=== PATIENT | female | born 1995 | race Two or more races ===

== ENCOUNTER 2025-05-27 13:27 | Outpatient (AMB) | payer OTHER, MEDICAID, SELFPAY ==
[2025-05-27 13:48] VITALS: BP 124/80; PULSE 87; RESP 16; TEMP 36.8; O2SAT 98; BMI 38.1
--- NOTE | 2025-05-27 13:48 | AMB.OBINITIA ---
Vital Signs 05/27/25 13:48 Height 1.57 m Height Method Stated Weight 94.574 kg Weight Measurement Method Standing Scale BMI 38.1 BP 124/80 Blood Pressure Source Automatic Cuff Blood Pressure Location Left Upper Arm Position Sitting Respiration 16 Pulse 87 Pulse Source Monitor Temp 98.2 F Temp Source Oral Pulse Oximetry (%) 98 Oxygen Delivery Method Room Air Allergies/Home Meds Allergies & Medications Allergies latex Allergy (Unknown, Verified 05/27/25 13:49) SWELLING Medication Reconciliation vit no.95-ferrous fumarate 28 mg-folic acid 800 mcg tablet () 1 tab PO QDAY 07/24/18 [History Confirmed 05/27/25] Intake Visit Data Collection New Patient or Established: Established Patient (seen at [facility] within 3 years) Reason for Visit:: INITIAL CARE Seen by Clinical Staff ONLY (RN/MA): No 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 1. Little interest or pleasure in doing things: not at all 2. Feeling down, depressed, or hopeless: not at all Total score: 0 PHQ-9 3. Trouble falling or staying asleep, or sleeping too much: Not at all 4. Feeling tired or having little energy: Not at all 5. Poor appetite or overeating: Not at all 6. Feeling bad about yourself - or that you are a failure or have let yourself or your family down: Not at all 7. Trouble concentrating on things, such as reading the newspaper or watching television: Not at all 8. Moving or speaking so slowly that other people could have noticed? - Or the opposite - being so fidgety or restless that you have been moving around a lot more than usual: not at all 9. Thoughts that you would be better off or of hurting yourself in some way: Not at all Total score: 0 Source: Developed by Drs. Saul Singh, Maria Luisa Reeder, Teto Estevez and colleagues, with an educational michel from [employer]. 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 FOB's name is Panda Tobacco History Smoking Status: Former smoker Second Hand Smoke Exposure: Yes Alcohol History Alcohol Intake: Former Substance Use History Substance Use: history of smoking canabis 3 years ago Domestic Abuse History Do You Feel Safe at Home: Yes History of Present Illness HPI Narrative The patient is a 29-year-old -0-1-2 presents for a new OB appointment. She states her LMP was 04/10/2025. This LMP gives a due date of 01/15/2026. The patient should be 6 weeks 2 days today. She reports some nausea, some breast tenderness, no vomiting. Of note, the patient was on Zepbound and she has discontinued this medication. She has a history of marijuana use but quit 2 months ago. She states her last Pap smear was 2022 and that the patient's mother had colon cancer in her late 30s and is still living. OB Ultrasound Indication Indication: Size, dates, viability OB Ultrasound Ultrasound technique: transvaginal Gestational sac assessment: Presence, location, size, shape: The single gestational sac with a pole present. [place]-rump length is 0.24 cm corresponding to a gestational age of 5 weeks, 5 days. No cardiac activity is noted yet. 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: Past Medical History Past Medical History: Yes Hx Neurological Disorders (previous Arnold Chiari), Yes Hx Cardiac Disorders and Yes Hx Hypertension (preeclampsia) Additional Operations/Hospitalizations (year & reason): CS 02/2019 general anesthesia due to a Chiari malformation Repeat 11/2023 under spinal D&C 2016 Cholecystectomy 2019 Tonsillectomy at age 1 Other Relevant History: History of preeclampsia History of group B strep colonization History of depression OB Initial Visit Menstrual History Menstrual reliability: definite Flow: heavy Menstrual regularity: irregular Monthly: No Age at menarche: 10 On control pills at conception: No Associated symptoms (LMP): Reports nausea, fatigue and breast tenderness OB History : 4 Para: 2 Hx Total # of Abortions (Spontaneous & Elective): 1 # of Living Children: 2 Delivery History 1st : Child's name: NICOLE date: 03/03/19 sex: male Gestational age at delivery (weeks): 38 Delivery type: Delivery complications: NONE History of depression before or after : No 2nd : Child's name: ESTRELLA date: 12/19/23 sex: male Gestational age at delivery (weeks): 39 Delivery type: Delivery complications: NONE History of depression before or after : No Infection History & Risk Evaluation History of STDs: none Genetic Screening & History Genetic Screening/Teratology Counseling - Includes patient, baby's father, or anyone in either family with: 1. Patient's age 35 years or older as of estimated date of delivery: No 2. Thalassemia (Kenyan, Jordanian, Mediterranean, or Background); MCV less than 80: No 3. Neural Tube Defect (Meningomyelocele, Spina Bifida, or Anencephaly): No 4. Congenital Heart Defect: No 5. Down Syndrome: No 6. Howard-Sachs (Ashkenazi Mu-Ism, Cajun, Tongan Turks [place] Ca[place] Islander): No 7. Chester Disease (Ashkenazi Mu-Ism): No 8. Familial Dysautonomia (Ashkenazi Mu-Ism): No 9. Sickle Cell Disease or Trait (): No 10. Hemophilia or other blood disorders: No 11. Muscular Dystrophy: No 12. Cystic Fibrosis: No 13. Alisia's Chorea: No 14. Mental Retardation/Autism: No 15. Other inherited genetic or chromosomal disorder: No 16. Maternal Metabolic Disorder (EG,TYPE 1 Diabetes, PKU): No 17. Patient or baby's father had a child with defects not listed above: No 18. Recurrent loss or a stillbirth: No 19. Medications (including supplements, vitamins, herbs or otc drugs)/illicit/recreational drugs/alcohol since last menstrual period: No 20. Any other: No Infection History 1. Live with someone with TB or exposed to TB: No 2. Rash or viral illness since last menstrual period: No 3. Hepatitis B,C: No Other (see comments) Source: [employer] Review of Systems Review of Systems Narrative Review of Systems: Mild nausea and breast tenderness. No bleeding. Constitutional Constitutional: Reports fatigue Gastrointestinal Gastrointestinal: Reports nausea Endocrine Endocrine: Reports fatigue Exam General Limitations: no limitations General Appearance: alert, in no apparent distress, comfortable, cooperative, healthy appearing and well groomed External exam: Present normal external exam Speculum exam: Present normal speculum exam Bimanual exam: Present normal bimanual exam Office Procedures OBC Clinic LOC & Office Proc's Nursing/Assessment Patient Status: Established Patient OB Clinic Nursing Assessment: Medication Reconciliation, Update PMH in EMR and Vital Signs OB Clinic Coordination of Care: Complex Care and Chronic Disease 1-5, Consent,records obtained, informed consent, Education Simp Pt/Fam, Lab and Imaging orders, Results/Orders obtained and Staff clarify orders Special Needs: Heart tones Miscellaneous Interventions: Blood/Urine Collection and Pelvic/Pap Smear Set up Established Patient Charge Established Patient Point Assignment: 185 Established Patient Point Charge: EP Level 5 (160-above) In Clinic Bedside tests/procedures Bedside HCG: Yes Pap Smear: Yes Results Urine HCG Urine HCG Positive Last Edit by Emily Page MA on 05/27/25 13:55 Assessment & Plan Diagnosis / Problem List (1) : Status: Acute Qualifiers: Weeks of gestation: less than 8 weeks Qualified Code(s): Z3A.01 - Less than 8 weeks gestation of Plan: vitamins. Labs and official ultrasound ordered. Follow-up in 4 weeks. It is too early to offer NIPT screening. (2) Previous delivery affecting : Status: Acute Plan: Patient with history of x 2 for repeat (3) Chiari malformation: Status: Acute Plan: Patient is allowed to have spinal anesthesia during her . 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 A speculum inserted without difficulty a broom collection device was used to sample both the Endo and ectocervix. The cells were placed in a liquid medium prep. Patient tolerated the procedure well. A Pap with cotesting for HPV was performed. Patient will be informed of her results at her next scheduled return OB appointment. A pelvic exam reveals a and anteverted uterus with no adnexal masses or tenderness. Papsmear completed: yes
== END 2025-05-27 14:40 | disposition home or self-care (01) ==
LOC: HODSOBC 13:27
PROVIDERS: PCP Obstetrics & Gynecology; Referring Provider Obstetrics & Gynecology; Supervising Provider Obstetrics & Gynecology; Visit Provider Obstetrics & Gynecology
DX: O09.291 Supervision of pregnancy with other poor reproductive or obstetric history, first trimester (principal); O09.891 Supervision of other high risk pregnancies, first trimester; O34.219 Maternal care for unspecified type scar from previous cesarean delivery; O99.351 Diseases of the nervous system complicating pregnancy, first trimester; Q07.00 Arnold-Chiari syndrome without spina bifida or hydrocephalus; O10.911 Unspecified pre-existing hypertension complicating pregnancy, first trimester; Z3A.01 Less than 8 weeks gestation of pregnancy; Z87.59 Personal history of other complications of pregnancy, childbirth and the puerperium; Z91.040 Latex allergy status; Z87.891 Personal history of nicotine dependence
CPT/HCPCS: 81025; 99215; Q0091; G0463

== ENCOUNTER 2025-06-03 13:00 | Outpatient (AMB) | payer OTHER, MEDICAID, SELFPAY ==
--- NOTE | 2025-06-03 13:12 | AMB.OBVISIT ---
Vital Signs 06/03/25 13:15 Height 1.57 m Height Method Stated Weight 97.069 kg Weight Measurement Method Standing Scale BMI 39.4 BP 117/75 Blood Pressure Source Automatic Cuff Blood Pressure Location Left Upper Arm Position Sitting Respiration 16 Pulse 82 Pulse Source Monitor Temp 97.2 F Temp Source Oral Pulse Oximetry (%) 98 Oxygen Delivery Method Room Air Allergies/Home Meds Allergies & Medications Allergies latex Allergy (Unknown, Verified 06/03/25 13:12) SWELLING Medication Reconciliation vit no.95-ferrous fumarate 28 mg-folic acid 800 mcg tablet () 1 tab PO QDAY 07/24/18 [History Confirmed 06/03/25] Intake Visit Data Collection New Patient or Established: Established Patient (seen at [facility] within 3 years) Reason for Visit:: OBC Seen by Clinical Staff ONLY (RN/MA): No Sales Representative Cash Registers Required: No Do You Feel Safe at Home: Yes Authorities Contacted: N/A PCP or OBGYN visit in last 3 months: Yes ([id number]) Date of Last PCP or OBGYN visit: 05/27/25 Hx Now: Yes Are you currently on any form of Control: No Pain Present Currently: No Pain Scale Used: Pang-Robison/Numerical Pain scale:: 0 Smoking Status Smoking Status: Former smoker Questionnaires Covid-19 Vaccine Questionnaire Has patient been vacinated for Covid-19 Have you been vacinated for Covid-19: No PHQ-9 PHQ-2 Over the last 2 weeks, how often have you been bothered by any of the following problems? 1. Little interest or pleasure in doing things: not at all 2. Feeling down, depressed, or hopeless: not at all Total score: 0 PHQ-9 3. Trouble falling or staying asleep, or sleeping too much: Not at all 4. Feeling tired or having little energy: Not at all 5. Poor appetite or overeating: Not at all 6. Feeling bad about yourself - or that you are a failure or have let yourself or your family down: Not at all 7. Trouble concentrating on things, such as reading the newspaper or watching television: Not at all 8. Moving or speaking so slowly that other people could have noticed? - Or the opposite - being so fidgety or restless that you have been moving around a lot more than usual: not at all 9. Thoughts that you would be better off or of hurting yourself in some way: Not at all Total score: 0 If you checked off any problems, how difficult have these problems made it for you to do your work, take care of things at home, or get along with other people?: not difficult at all Source: Developed by Drs. Saul Singh, Maria Luisa Reeder, Teto Estevez and colleagues, with an educational michel from [employer]. 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: Past Medical History Past Medical History: Yes Hx Neurological Disorders (previous Joe Ward), No Hx Hypothyroidism, No Hx Hyperthyroidism, No Hx Breast Cancer, Yes Hx Cardiac Disorders, Yes Hx Hypertension (preeclampsia), No Hx Cancer, No Hx Blood Disorders, No Hx Anemia, No Hx Gastrointestinal Disorders, No Hx Renal Disease, No Hx Deep Vein Thrombosis, No Hx Diabetes Mellitus Type 1, No Hx Diabetes Mellitus Type 2, No Hx Tubal Ligation, No Hx Hysterectomy and No Psychiatric Problems Care HARRIET Calculator Estimated Delivery Date Method Current WG Current Estimate 01/15/26 LMP (Uncertain) 7w 5d Other Estimates 01/22/26 Ultrasound #1 6w 5d Office Procedures OBC Clinic LOC & Office Proc's Nursing/Assessment Patient Status: Established Patient OB Clinic Nursing Assessment: Medication Reconciliation, Update PMH in EMR and Vital Signs OB Clinic Coordination of Care: Education Complex Pt/Fam, Consent,records obtained, informed consent, Lab and Imaging orders, Results/Orders obtained and Staff clarify orders Special Needs: Heart tones Established Patient Charge Established Patient Point Assignment: 115 Established Patient Point Charge: EP Level 3 (80-115) Assessment & Plan Diagnosis / Problem List (1) : Status: Acute Qualifiers: Weeks of gestation: less than 8 weeks Qualified Code(s): Z3A.01 - Less than 8 weeks gestation of Plan: Early live IUP seen measuring 6 weeks today. Follow-up in 2 weeks. (2) Chiari malformation: Status: Acute Plan: Patient tolerated a spinal anesthesia with last . Notes should be on [facility] computer. Okay for spinal for repeat per last anesthesia provider. (3) Previous delivery affecting : Status: Acute Plan: For elective repeat section
[2025-06-03 13:15] VITALS: BP 117/75; PULSE 82; RESP 16; TEMP 36.2; O2SAT 98; BMI 39.4
== END 2025-06-03 13:51 | disposition home or self-care (01) ==
LOC: HODSOBC 13:00
PROVIDERS: Supervising Provider Obstetrics & Gynecology; Visit Provider Obstetrics & Gynecology
DX: O09.291 Supervision of pregnancy with other poor reproductive or obstetric history, first trimester (principal); O34.219 Maternal care for unspecified type scar from previous cesarean delivery; O09.891 Supervision of other high risk pregnancies, first trimester; O35.09X0 Maternal care for (suspected) other central nervous system malformation or damage in fetus, not applicable or unspecified; Z3A.01 Less than 8 weeks gestation of pregnancy; Z91.040 Latex allergy status; Z87.891 Personal history of nicotine dependence
CPT/HCPCS: 99213; G0463

== ENCOUNTER 2025-06-17 09:23 | Outpatient (AMB) | payer MEDICAID, SELFPAY ==
[2025-06-17 09:31] VITALS: BP 127/79; PULSE 73; RESP 16; TEMP 36.3; O2SAT 98; BMI 40.1
--- NOTE | 2025-06-17 09:31 | AMB.OBVISIT ---
Vital Signs 06/17/25 09:31 Height 1.57 m Height Method Stated Weight 98.997 kg Weight Measurement Method Standing Scale BMI 40.1 BP 127/79 Blood Pressure Location Left Upper Arm Respiration 16 Pulse 73 Pulse Source Monitor Temp 97.4 F Temp Source Temporal Artery Scan Pulse Oximetry (%) 98 Oxygen Delivery Method Room Air Allergies/Home Meds Allergies & Medications Allergies latex Allergy (Unknown, Verified 06/17/25 09:33) SWELLING Medication Reconciliation vit no.95-ferrous fumarate 28 mg-folic acid 800 mcg tablet () 1 tab PO QDAY 07/24/18 [History Confirmed 06/17/25] Intake Visit Data Collection New Patient or Established: Established Patient (seen at [facility] within 3 years) Reason for Visit:: OBC Seen by Clinical Staff ONLY (RN/MA): No Structural Steel Engineer Required: No Do You Feel Safe at Home: Yes Authorities Contacted: N/A PCP or OBGYN visit in last 3 months: Yes Hx Now: Yes Are you currently on any form of Control: No Pain Present Currently: No Pain Scale Used: Pang-Robison/Numerical Pain scale:: 0 Smoking Status Smoking Status: Former smoker Immunizations Flu Vaccine in the Last 12 Months: No Questionnaires Covid-19 Vaccine Questionnaire Has patient been vacinated for Covid-19 Have you been vacinated for Covid-19: Yes PHQ-9 PHQ-2 Over the last 2 weeks, how often have you been bothered by any of the following problems? 1. Little interest or pleasure in doing things: not at all 2. Feeling down, depressed, or hopeless: not at all Total score: 0 PHQ-9 3. Trouble falling or staying asleep, or sleeping too much: Not at all 4. Feeling tired or having little energy: Not at all 5. Poor appetite or overeating: Not at all 6. Feeling bad about yourself - or that you are a failure or have let yourself or your family down: Not at all 7. Trouble concentrating on things, such as reading the newspaper or watching television: Not at all 8. Moving or speaking so slowly that other people could have noticed? - Or the opposite - being so fidgety or restless that you have been moving around a lot more than usual: not at all 9. Thoughts that you would be better off or of hurting yourself in some way: Not at all Total score: 0 If you checked off any problems, how difficult have these problems made it for you to do your work, take care of things at home, or get along with other people?: not difficult at all Source: Developed by Drs. Saul Singh, Maria Luisa Reeder, Teto Estevez and colleagues, with an educational michel from [employer]. 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: Past Medical History Past Medical History: Yes Hx Neurological Disorders (previous Joe Ward), No Hx Hypothyroidism, No Hx Hyperthyroidism, No Hx Breast Cancer, Yes Hx Cardiac Disorders, Yes Hx Hypertension (preeclampsia), No Hx Cancer, No Hx Blood Disorders, No Hx Anemia, No Hx Gastrointestinal Disorders, No Hx Renal Disease, No Hx Deep Vein Thrombosis, No Hx Diabetes Mellitus Type 1, No Hx Diabetes Mellitus Type 2, No Hx Tubal Ligation, No Hx Hysterectomy and No Psychiatric Problems History of Present Illness HPI Narrative visit at 9 weeks and 5 days gestation Lala Mosqueda, , presents for routine visit at 9 weeks and 5 days gestation. Patient reports minimal nausea but denies vomiting or other issues. Denies FRITZ, VC, and epigastric pain. - Lala Mosqueda is a 29-year-old 2 para 1 female presenting for a visit at 9 weeks and 5 days gestation. - She has a history of Chiari malformation. - The patient reports feeling good overall with no current nausea or vomiting. - She delivered her previous baby in November of the prior year. - She reports taking her vitamins as prescribed. - She has been established with this office for almost a year since August after her previous provider's office shut down. Care OB Visit Log OB Flowsheet Initial Weight: Not Recorded Date <del>?</del> EGA Weight BP Alb Glu CTX Pres Fundal ht FHR Mov Dilation Station Effacement Hx Notes Visit Note 06/03/25 <del>?</del> 7w 5d 97.069 kg 117/75 98 Return OB. Live IUP seen today measuring 5 weeks 6 days with cardiac activity at 98 bpm Will follow-up with Dr. Lloyd in 2 weeks. 06/17/25 <del>?</del> 9w 5d 98.997 kg 127/79 161 - Lala Mosqueda is a 29-year-old 2 para 1 female presenting for a visit at 9 weeks and 5 days gestation. - She has a history of Chiari malformation. - The patient reports feeling good overall with no current nausea or vomiting. - She delivered her previous baby in November of the prior year. - She reports taking her vitamins as prescribed. - She has been established with this office for almost a year since August after her previous provider's office shut down. Plan - Continue vitamins - Return in 4 weeks for genetic testing including Down syndrome screening and gender determination - Schedule follow-up appointment at approximately 10 weeks gestation - Follow precautions including avoiding excessive physical strain HARRIET Calculator Estimated Delivery Date Method Current WG Current Estimate 01/15/26 LMP (Uncertain) 10w 6d Other Estimates 01/22/26 Ultrasound #1 9w 6d Expected Delivery Route/Plan care labs: A+/antibody negative/rubella immune/RPR nonreactive/HIV negative/hepatitis B surface antigen negative/ hepatitis C negative/GC negative /Chlamydia negative /hemoglobin 13.1/ hematocrit 41.4/ hemoglobin A1c 4.9./ Specific Issue/Plans 29-year-old -0-1-2 History of x 2 for repeat BMI 40, Start Baby ASA at 9 weeks Office Procedures OBC Clinic LOC & Office Proc's Nursing/Assessment Patient Status: Established Patient OB Clinic Nursing Assessment: Medication Reconciliation, Update PMH in EMR and Vital Signs OB Clinic Coordination of Care: Complex Care and Chronic Disease 1-5, Education Complex Pt/Fam, Lab and Imaging orders and Staff clarify orders Special Needs: Heart tones Established Patient Charge Established Patient Point Assignment: 130 Established Patient Point Charge: EP Level 4 (120-155) Assessment & Plan Diagnosis / Problem List (1) Uterine size date discrepancy: Status: Acute (2) : Status: Acute Qualifiers: Weeks of gestation: less than 8 weeks Qualified Code(s): Z3A.01 - Less than 8 weeks gestation of (3) Previous delivery affecting : Status: Acute Plan Problem List - Chiari malformation - Assessment 29-year-old para presenting at 9 weeks 5 days gestation for visit. Ultrasound performed showing heartbeat of 161 bpm with measurements corresponding to 7 weeks 3 days gestation, indicating possible dating discrepancy from estimated gestational age. Patient has personal history of Chiari malformation. Patient reports no nausea, vomiting, or other current issues. Plan - Continue vitamins - Return in 4 weeks for genetic testing including Down syndrome screening and gender determination - Schedule follow-up appointment at approximately 10 weeks gestation - Follow precautions including avoiding excessive physical strain
== END 2025-06-17 10:34 | disposition home or self-care (01) ==
LOC: HODSOBC 09:23
PROVIDERS: Supervising Provider Obstetrics & Gynecology; Visit Provider Obstetrics & Gynecology
DX: O09.891 Supervision of other high risk pregnancies, first trimester (principal); Z3A.09 9 weeks gestation of pregnancy; O26.841 Uterine size-date discrepancy, first trimester; Q07.8 Other specified congenital malformations of nervous system; O09.291 Supervision of pregnancy with other poor reproductive or obstetric history, first trimester; O34.219 Maternal care for unspecified type scar from previous cesarean delivery; Z91.040 Latex allergy status; Z87.891 Personal history of nicotine dependence
CPT/HCPCS: 99214; G0463

== ENCOUNTER → 2025-06-30 | Outpatient (CLI) | payer MEDICAID, SELFPAY ==
--- NOTE | 2025-06-30 15:00 | XR_ITS ---
Examination: Complete OB ultrasound, less than 14 weeks, transabdominal Date and time of exam: June 30, 2025, 1517 hours INDICATIONS: Diagnosis size dates discrepancy Technique: Obstetrical ultrasound images less than 14 weeks performed via transabdominal imaging Findings: A normal shaped single intrauterine gestation is present in the uterus. CRL 3.1 cm corresponds to 10-week 0-day gestational age Cardiac motion 166 bpm Ultrasonographic survey of visible and placental structures unremarkable. Amniotic fluid volume appears appropriate for this estimated gestational age. Right ovary 2.3 cm arterial flow Left ovary 2.9 cm arterial flow IMPRESSION: Viable intrauterine gestation 10 weeks 0 days.
--- NOTE | 2025-06-30 15:00 | XR_ITS ---
Examination: OB Transvaginal ultrasound of the pelvis, complete Technique: Transvaginal sonographic images pelvis performed using weir scale imaging Exam date and time: June 30, 2025, 1530 hours INDICATIONS: Size dates discrepancy FINDINGS: Uterus 10.8 cm CRL 3.1 cm corresponds to 10 weeks 0 days gestational age. Cardiac motion 164 bpm Heterogeneous area adjacent to the gestational sac 4.6 x 2.6 x 3.9 cm which is not a classic appearance for subarachnoid hemorrhage, possible uterine fibroid degeneration Right ovary 2.3 cm arterial flow Left ovary 2.9 cm arterial flow IMPRESSION: Viable intrauterine gestation 10 weeks 0 days gestational age Recommend 1 week follow-up examination to assess area adjacent to the gestational sac, 4.6 x 2.6 x 3.9 cm, unclear etiology.
== END | disposition home or self-care (01) ==
PROVIDERS: Referring Provider Obstetrics & Gynecology; Visit Provider Obstetrics & Gynecology
DX: O26.849 Uterine size-date discrepancy, unspecified trimester (principal); Z3A.10 10 weeks gestation of pregnancy
CPT/HCPCS: 76801; 76817

== ENCOUNTER 2025-07-14 08:13 | Outpatient (AMB) | payer MEDICAID, SELFPAY ==
[2025-07-14 08:25] VITALS: BP 120/74; PULSE 64; RESP 18; TEMP 36.6; O2SAT 98; BMI 41.1
--- NOTE | 2025-07-14 08:25 | OBCLNT_ITS ---
Vital Signs 07/14/25 08:25 Height 1.57 m Height Method Stated Weight 101.264 kg Weight Measurement Method Standing Scale BMI 41.1 BP 120/74 Blood Pressure Source Automatic Cuff Blood Pressure Location Right Upper Arm Position Sitting Respiration 18 Pulse 64 Pulse Source Monitor Temp 97.8 F Temp Source Temporal Artery Scan Pulse Oximetry (%) 98 Oxygen Delivery Method Room Air Allergies/Home Meds Allergies & Medications Allergies latex Allergy (Unknown, Verified 07/14/25 08:29) SWELLING Medication Reconciliation vit no.95-ferrous fumarate 28 mg-folic acid 800 mcg tablet () 1 tab PO QDAY 07/24/18 [History Confirmed 07/14/25] Immunizations Immunizations Flu Vaccine in the Last 12 Months: No Flu Vaccine Exclusion Criteria: No Exclusion Criteria Care OB Visit Log OB Flowsheet Initial Weight: Not Recorded Date -?-?-?-?-?-?-?-?-?-?-?-?- EGA Weight BP Alb Glu CTX Pres Fundal ht FHR Mov Dilation Station Effacement Hx Notes Visit Note 06/03/25 -?-?-?-?-?-?-?-?-?-?-?-?- 6w 1d 97.069 kg 117/75 98 Return OB. Live IUP seen today measuring 5 weeks 6 days with cardiac activity at 98 bpm Will follow-up with Dr. Lloyd in 2 weeks. 06/17/25 -?-?-?-?-?-?-?-?-?-?-?-?- 8w 1d 98.997 kg 127/79 161 - Lala Mosqueda is a 29-year-old 2 para 1 female presenting for a visit at 9 weeks and 5 days gestation. - She has a history of Chiari malformati on. - The patient reports feeling good overa ll with no current nausea or vomiting. - She delivered her previous baby in Nov of the prior year. - She reports taking her vitami ns as prescribed. - She has been established with this off ice for almost a year since August after her previous provider's office shut down. Plan - Continue vitamins - Return in 4 weeks for genetic testing including Down syndrome screening and gender determination - [facility] - Follow precautions including avoiding excessive physical strain 07/14/25 -?-?-?-?-?-?-?-?-?-?-?-?- 12w 0d 101.264 kg 120/74 146 - Denise Mosqueda is here for a follow-up visit. - Her due date has been revised to December 26 based on a 10-week ultrasound performed on June 30, which is significantly earlier than her previous due date of early January. - She reports pelvic discomfort similar to what she experienced during her previous . - Her headaches have resolved since the last visit. - She is currently approximately 13 week s and 4 days based on the ultrasound dating. - She has a [id number] child from a previous . - Due date revised to December 26 based on 10-week ultrasound from 06/30 - Follow-up appointment scheduled in 4 w eeks - Complete labs and IPT to be o rdered - Hannah will call patient for ultrasou nd scheduling HARRIET Calculator Estimated Delivery Date Method Current WG Current Estimate 01/26/26 Ultrasound #2 12w 0d Other Estimates 01/15/26 LMP (Uncertain) 13w 4d 01/22/26 Ultrasound #1 12w 4d Expected Delivery Route/Plan care labs: A+/antibody negative/rubella immune/RPR nonreactive/HIV negative/hepatitis B surface antigen negative/ hepatitis C negative/GC negative /Chlamydia negative /hemoglobin 13.1/ hematocrit 41.4/ hemoglobin A1c 4.9./ Specific Issue/Plans 29-year-old -0-1-2 History of x 2 for repeat BMI 40, Start Baby ASA at 9 weeks Office Procedures [facility] LOC & Office Proc's Nursing/Assessment Patient Status: Established Patient OB Clinic Nursing Assessment: Medication Reconciliation, Update PMH in EMR and Vital Signs OB Clinic Coordination of Care: Complex Care and Chronic Disease 1-5, Education Complex Pt/Fam, Consent,records obtained, informed consent, Lab and Imaging orders, Results/Orders obtained and Staff clarify orders Special Needs: Heart tones Established Patient Charge Established Patient Point Assignment: 140 Established Patient Point Charge: EP Level 4 (120-155) Assessment & Plan Diagnosis / Problem List (1) Uterine size date discrepancy: Status: Acute (2) Previous delivery affecting : Status: Acute Plan Heart Rate (FHR) and Dates/Viability Verified Review Labs: Confirm results and address any abnormalities with treatment or referrals. History & Symptoms: Ask about nausea, vomiting, bleeding, or cramping. Screen for mental health concerns. Physical Exam: Check weight, blood pressure, and heart rate (via Doppler). Education: Discuss nutrition, exercise, and avoiding harmful substances. Review safe medications and warning signs (e.g., severe pain, bleeding). Screening Tests: Offer genetic screening if not done. Discuss upcoming anatomy scan (18-20 weeks). Plan: Schedule next visit (typically 4 weeks later) and any needed tests. Keep it supportive, address concerns, and ensure clear follow-up instructions. Problem List - - Pelvic pain Assessment The patient is currently at 13 weeks and 4 days gestation with a revised due date of December 26 based on a 10-week ultrasound performed on June 30, which showed a discrepancy of over one week from the original dating requiring adjustment per standard protocol. heart rate is 146 bpm with visible movement noted on current examination. The patient reports resolution of previously experienced headaches. She continues to experience pelvic discomfort similar to her previous , which is noted as an expected finding. Her previous child is one and a [age] years old and developing appropriately. Plan - Due date revised to December 26 based on 10-week ultrasound from 06/30 - Follow-up appointment scheduled in 4 weeks - Complete labs and IPT to be ordered - Hannah will call patient for ultrasound scheduling
== END 2025-07-14 09:22 | disposition home or self-care (01) ==
LOC: HODSOBC 08:13
PROVIDERS: Supervising Provider Obstetrics & Gynecology; Visit Provider Obstetrics & Gynecology
DX: O09.291 Supervision of pregnancy with other poor reproductive or obstetric history, first trimester (principal); O34.219 Maternal care for unspecified type scar from previous cesarean delivery; O09.891 Supervision of other high risk pregnancies, first trimester; O26.841 Uterine size-date discrepancy, first trimester; Z3A.12 12 weeks gestation of pregnancy
CPT/HCPCS: 99214; G0463